=== PATIENT | female | born 1985 | race African-American/Black ===

== ENCOUNTER 2022-06-03 11:45 | Outpatient (RCR) | payer OTHER, SELFPAY ==
--- NOTE | 2022-04-24 16:49 | PTOPEVAL1 ---
Assessment and note entered by Zulema Hansen, PT Evaluation Information Assessment Status Evaluation Diagnosis muscle weakness generalized Subjective Information Pt reports blood clot Roberta LLE secondary to cancer treatment so is susceptible to blood clots Goal is to build strength in LLE. Reported Pain Level Pain Score 0: Self Report Assessment PT Clinical Summary Pt presents w/ c/o LLE weakness, blood clot, and decreased endurance related to cancer treatment and chemotherapy side effects. Prior level of function patient was able to run/walk for 45 minutes without a break. Evaluation shows pt is able to walk ad a brisk pace for 5 minutes 40 seconds prior to requiring a sitting break, 1330 ft with increasing postural weakness noted through activity. Demo's BLE weakness of glutes and reduced strength of postural musculature however appears grossly equal BLE. Pt will greatly benefit from physical therapy to improve endurance and strength in order to assist pt in being as functionally independent as able. Plan of Care Interventions Neuro Re-education,Patient/Caregiver Educati, Therapeutic Activities,Therapeutic Exercise PT Services Indicated Yes Treatment Frequency and 2x weekly x 6 weeks then reassessment for Duration progression vs POC adjustment These treatments will address the objective and functional deficits as defined above. The patient will be advanced safely and appropriately in order for the patient to progress towards his/her prior level of function. Additional exercises will be introduced and as well as a comprehensive home exercise program upon discharge, if needed, ?to ensure carryover of functional gains achieved in the clinic. This treatment plan has been reviewed and agreement upon by the patient.
--- NOTE | 2022-07-04 11:51 | PCPTNOTE ---
PHYSICAL THERAPY DISCHARGE 07-04-22 Attending Provider: Leighton Talbert MD Patient:Santo Enamorado Date of :1985 Santo has received 5 PT sessions, from April 24 to June 03. She then stopped attending; therefore she will be discharged at this time. She does have a compression thigh high garment for management of her lymphedema and has been issued a home exercise program. The goals were not assessed. Thank you for referring Ms. Enamorado to [facility].
== END 2022-07-04 14:15 | disposition home or self-care (01) ==
LOC: ANHPT 11:45
DX: R53.1 Weakness (principal); C53.9 Malignant neoplasm of cervix uteri, unspecified; I82.422 Acute embolism and thrombosis of left iliac vein
CPT/HCPCS: 97110; 97140; 97162; 97530

== ENCOUNTER 2023-06-10 02:00 | Emergency (ER) | payer OTHER, SELFPAY ==
[2023-06-10] VITALS (32 sets, daily range): BP systolic 90–146; BP diastolic 53–123; PULSE 90–136; RESP 11–32; TEMP 36.8; O2SAT 96–100
--- NOTE | ~2023-06-10 | CT_ITS ---
CT of the Abdomen and Pelvis: Indication: Abdominal pain, history of cervical cancer Technique: 2.5 mm axial scans were obtained through the abdomen and pelvis following intravenous adm inistration of 100 cc of Omnipaque 350. Dose reduction technique was used on this scan by utilizing a utomated exposure control and iterative reconstruction technique. The dose-length product (DLP) was 4 38.83 mGy-cm. Findings: Scans through the lung bases are unremarkable. The liver, spleen, pancreas, and adrenal glands are within normal limits. Gallbladder is prominently distended, but otherwise morphologically unremarkable on CT imaging. There is mild right hydrouretero nephrosis. Left kidney appears minimally atrophic, with left ureteral stent in place. No left hydrone phrosis. No evidence of aortic aneurysm. No lymphadenopathy. No definite bowel obstruction. There is prominent distention of the cecum which is filled with stool. Images through the pelvis were performed. No definite adnexal mass seen, though there is extensive in filtration of pelvic fat planes. Probable minimal free fluid in the pelvis. Impression: Extensive infiltration of pelvic fat planes with small amount of free fluid in the pelvis. Findings c ould reflect post therapy changes related to history of cervical cancer. No definite pelvic mass iden tified. Correlate with treatment history. Mild right hydroureteronephrosis. Left ureteral stent in place. Prominent distention of cecum which is filled with stool. No bowel obstruction evident. Distended gallbladder. Consider ultrasound, as indicated. Reviewed, dictated and finalized at [facility]. VERY CONSULTANT Impression: Extensive infiltration of pelvic fat planes with small amount of free fluid in the pelvis. Findings could reflect post therapy changes related to history of c ervical cancer. No definite pelvic mass identified. Correlate with treatment hi story. Mild right hydroureteronephrosis. Left ureteral stent in place. Prominent distention of cecum which is filled with stool. No bowel obstruction evident. Distended gallbladder. Consider ultrasound, as indicated.
--- NOTE | ~2023-06-10 | XR_ITS ---
Portable chest x-ray Comparison: 04/12/2016 Clinical History: Cough Findings: Right-sided central venous line/Mediport is in place. Lungs are clear, without focal conso lidation or pleural effusion. Cardiomediastinal silhouette is stable. Bones and soft tissues are unr emarkable. Impression: Clear lungs. Support line, as above. Reviewed, dictated and finalized at location [facility]. BUILDER Impression: Clear lungs. Support line, as above.
[2023-06-10] MEDS: SODIUM CHLORIDE 0.9% IV 1,000 ML 999 ML IV CONT (03:35)
[2023-06-10] MEDS: ONDANSETRON INJ 4 MG/2 ML VIAL IV PUSH (03:35)
[2023-06-10] MEDS: HYDROmorphone HCL INJ (*CRX) 1 MG/ML SYR IV PUSH ×3 (03:35→10:38)
[2023-06-10 03:43] LABS: Basophils Percent Auto 0.2 % (0.2-1.2); Hematocrit 26.9 % (37.0-47.0); Immature Granulocyte Absolute 0.14 K/mm3 (0.00-0.031); Immature Granulocyte Percent A 0.7 % (0-0.5); Lymphocytes Absolute Auto 1.42 K/mm3 (0.9-3.2); Lymphocytes Percent Auto 7.5 % (18.3-44.2); Mean Corpuscular HGB Conc 33.5 g/dl (32-36); Mean Corpuscular Hemoglobin 30.1 pg (26-34); Mean Platelet Volume 9.8 fl (7.4-10.4); Monocytes Percent Auto 5.2 % (2.6-8.5); Neutrophils Absolute Auto 16.3 K/mm3 (1.3-6.7); Neutrophils Percent Auto 86.4 % (45.5-73.1); Platelet Count Result 338 k/mm3 (150-375); Red Blood Count 2.99 M/mm3 (4.2-5.4); Red Cell Distribution Width 13.5 % (11.5-14.5); White Blood Count 18.9 K/mm3 (4.5-10.0)
[2023-06-10 03:55] LABS: Alanine Aminotransferase 14 U/L (6-35); Albumin Level 2.4 g/dL (3.5-5.1); Alkaline Phosphatase 86 U/L (38-126); Anion Gap 14 mmol/L (8-16); Aspartate Amino Transferase 21 U/L (14-36); Bilirubin,Total 0.6 mg/dL (0.2-1.3); Blood Urea Nitrogen 13 mg/dL (7-17); Calcium 10.2 mg/dL (8.4-10.2); Carbon Dioxide 22 mmol/L (22-30); Chloride 103 mmol/L (98-107); Estimated CRCL calculation 53 ml/min; Estimated Glomerular Filt Rate > 60; Glucose 105 mg/dL (65-110); Lipase 73 U/L (23-300); Potassium 4.1 mmol/L (3.4-5.0); Sodium 139 mmol/L (137-145)
[2023-06-10 04:04] LABS: INR 1.3; Prothrombin Time 16.6 Seconds (11.1-14.7)
[2023-06-10 04:06] LABS: Partial Thromboplastin Time 63.2 SECONDS (22.3-36.8)
--- NOTE | 2023-06-10 04:45 | ED.GENADULT ---
HPI - General Adult General Chief complaint: Vaginal Bleeding Stated complaint: vaginal bleeding Time Seen by Provider: 06/10/23 03:07 History of Present Illness HPI narrative: Patient is a 38-year-old female who presents emerged from with chief complaint of abdominal pain and vaginal bleeding. Patient has history of cervical cancer is followed at [facility] the patient reports she has had severe abdominal pain and now started having vaginal bleeding that was requiring approximately 1 tampon an hour. The patient reports that she is undergoing chemotherapy and was recently admitted at [place]. Related Data Allergies Allergy/AdvReac Type Severity Reaction Status Date / Time No Known Allergies Allergy Unverified 07/23/18 14:37 Review of Systems Review of Systems: A 10 system review of systems was completed on the patient and is negative except for what is stated in the HPI. Nursing and ancillary documentation was reviewed. Exam Narrative: GENERAL: Ill-appearing, well-nourished, and in moderate acute pain distress. HEAD: Normocephalic, atraumatic. EYES: PERRLA and EOMI. ENT: Nares clear, no rhinorrhea or epistaxis. Mucous membranes moist. NECK: Supple. CHEST: Clear to auscultation. No respiratory distress. HEART: Regular rate and rhythm. No murmur heard. Normal peripheral pulses. ABDOMEN: Soft, diffusely tender to palpation, nondistended, normal active bowel sounds. : There is a moderate amount of blood in the vaginal wall was able to be cleared with 2 OB swabs EXTREMITIES: Normal range of motion. No edema. SKIN: Warm, dry, no rash. NEURO: No focal deficits. Alert and oriented x3. PSYCH: Normal mood and affect. Course Vital Signs Vital signs: Vital Signs Temperature 36.8 C 06/10/23 02:04 Pulse Rate 90 06/10/23 02:04 Respiratory Rate 18 06/10/23 02:04 Blood Pressure 116/77 06/10/23 02:04 Pulse Oximetry 100 06/10/23 02:04 Oxygen Delivery Room Air 06/10/23 02:04 Temperature 36.8 C 06/10/23 02:04 Pulse Rate 99 06/10/23 07:05 Respiratory Rate 19 06/10/23 07:05 Blood Pressure 133/90 06/10/23 07:05 Pulse Oximetry 100 06/10/23 07:05 Oxygen Delivery Room Air 06/10/23 02:04 Medical Decision Making MDM Narrative Medical decision making narrative: Differential diagnosis includes urinary tract infection, pelvic infection, hemorrhage from cervical cancer, Laboratory studies were obtained showed a white count of 18.9 Urinalysis showed evidence of a UTI Patient was started on Rocephin in the emergency department patient's pain was ultimately controlled using fentanyl after receiving 2, 1 mg doses of Dilaudid Case was discussed with patient's doctor at [facility] the patient will be accepted at [facility] Vital Signs Vital Signs: Vital Signs Temperature 36.8 C 06/10/23 02:04 Pulse Rate 90 06/10/23 02:04 Respiratory Rate 18 06/10/23 02:04 Blood Pressure 116/77 06/10/23 02:04 Pulse Oximetry 100 06/10/23 02:04 Oxygen Delivery Room Air 06/10/23 02:04 Temperature 36.8 C 06/10/23 02:04 Pulse Rate 99 06/10/23 07:05 Respiratory Rate 19 06/10/23 07:05 Blood Pressure 133/90 06/10/23 07:05 Pulse Oximetry 100 06/10/23 07:05 Oxygen Delivery Room Air 06/10/23 02:04 Lab Data 06/10/23 03:38 06/10/23 03:38 Labs: Lab Results 06/10/23 06/10/23 Range/Units 03:38 05:09 WBC 18.9 H (4.5-10.0) K/mm3 RBC 2.99 L (4.2-5.4) M/mm3 Hgb 9.0 L (12.0-15.0) g/dL Hct 26.9 L (37.0-47.0) % MCV 90.0 (80-100) fl MCH 30.1 (26-34) pg MCHC 33.5 (32-36) g/dl RDW 13.5 (11.5-14.5) % Plt Count 338 (150-375) k/mm3 MPV 9.8 (7.4-10.4) fl Immature Gran % (Auto) 0.7 H (0-0.5) % Neut % (Auto) 86.4 H (45.5-73.1) % Lymph % (Auto) 7.5 L (18.3-44.2) % [place] % (Auto) 5.2 (2.6-8.5) % Eos % (Auto) 0.0 (0-4.4) % Baso % (Auto) 0.2 (0.2-1.2) % Lymph # (Auto) 1.42 (0.9-3.
[2023-06-10] MEDS: fentaNYL CITRATE INJ (*CRX) 100 MCG/2 ML VIAL 50 MCG IV PUSH ×3 (04:56→07:53)
[2023-06-10 05:38] LABS: Appearance Urine Cloudy (Clear); Bacteria Urine None Seen /hpf; Bilirubin Urine Negative (Negative); Blood Urine 3+ (Negative); Color Urine Yellow (Yellow); Glucose Urine UA Negative (Negative); Ketones Urine 1+ mg/dL (Negative); Leukocyte Esterase Ur 1+ LEU/UL (Negative); Nitrate Urine Negative (Negative); Non Pathogenic Casts 0-2; Protein Urine Negative (Negative); RBC Urine >100 /hpf (0-2); Squamous Epithelial Cell Urine Occasional /hpf (Few); Urobilinogen Urine 0.2 mg/dL (<2.0); WBC Clumps Urine Present /HPF; WBC Urine 21-50 /hpf; pH Urine 7.5 (5.0-9.0)
[2023-06-10 05:39] LABS: Specific Grav Ur 1.044 (1.001-1.035)
[2023-06-10 05:45] LABS: Add Urine Microscopic? YES
[2023-06-10] MEDS: CENTRAL LINE FLUSH 10 ML IV PUSH (06:04)
--- NOTE | 2023-06-10 07:12 | PC.NURSE ---
[facility] transfer center called for triage. They state pt is accepted and waiting on a bed
--- NOTE | 2023-06-10 10:05 | PC.NURSE ---
Autumn from [facility] call center called for updated set of vitals, Bed assignment [id number], number to call report [phone]
--- NOTE | 2023-06-10 10:13 | PC.NURSE ---
Report given to Amber MANN at [facility]
== END 2023-06-10 11:11 | disposition short-term general hospital (02) ==
PROVIDERS: Emergency Provider Emergency Medicine
DX: C53.9 Malignant neoplasm of cervix uteri, unspecified (principal); N93.9 Abnormal uterine and vaginal bleeding, unspecified; N39.0 Urinary tract infection, site not specified; D72.829 Elevated white blood cell count, unspecified
CPT/HCPCS: 36415; 71045; 74177; 80053; 81001; 83690; 85025; 85610; 85730; 86850; 86900; 86901; 87086; 96361; 96365; 96375; 96376; 99285; J0696; J1170; J2405; J3010; J7030; Q9967

== ENCOUNTER 2023-11-13 22:20 | Emergency (ER) | payer OTHER, SELFPAY ==
--- NOTE | ~2023-11-13 | CT_ITS ---
EXAMINATION: CT abdomen pelvis w con DATE: 11/14/2023 00:06 INDICATION: Abdominal pain, cervical cancer and vaginal bleeding TECHNIQUE: Computed tomography (CT) of the abdomen and pelvis was performed with 100 mL Omnipaque-350 intravenous contrast. Automated exposure control and iterative reconstruction technique were employe d. The dose-length product was 305.49 mGy-cm. COMPARISON: 06/10/2023 FINDINGS: Lung bases are clear. Heart size is normal. No pericardial or pleural effusion. Tip of a central veno us catheter extends from the superior vena cava into the high right atrium. Liver, gallbladder, splee n, pancreas and bilateral adrenal glands are normal. There are bilateral percutaneous nephrostomy tub es with loops formed in the bilateral renal pelvises minimal hydronephrosis. Right kidney is otherwis e normal. There is asymmetric mild to moderate left renal atrophy. Left lower quadrant diverting loop colostomy utilizing the proximal sigmoid colon. There appears be a suture line at the sigmoid colon distal to the diverting loop. There appears be an additional suture line deeper and more posteriorly in the pelvis potentially at the proximal end of a Mata's pouch. The margins of the rectum, cervix and base of the bladder are difficult to distinguish with heterogeneously enhancing tissue and edema replacing the normal fat in the deep pelvis. This appears to exert some mass effect upon the posteri or wall of the bladder and is concerning for progression of reported known cervical cancer. There are scattered foci of gas within this region and it is unclear whether this remains within a viscus stru cture, an abscess or free within the soft tissues. No other more remote free intraperitoneal gas. The re is also a small amount of gas within the bladder. Bones are unremarkable. IMPRESSION: 1. Increasing soft tissue density and soft tissue edema in the deep pelvis which obscures the delinea tion between the rectum if present and the region of the cervix and the base of the bladder. Interpre tation is complicated by the interval postoperative changes along the sigmoid colon with left lower q uadrant diverting loop sigmoid colostomy. It is unclear whether there remains a Mata's pouch. The increasing soft tissue density and edema be due to progression of reported known cervical cancer or i nflammatory pseudomass related to prior surgery and potentially complicated by either malignant invas ion or suture line breakdown. There are scattered foci of gas within this region could remain intralu hemal however elevate suspicion for associated perforated viscus. 2. Minimal bilateral hydronephrosis with bilateral percutaneous nephrostomy tubes in expected positio ns. Reviewed, dictated and finalized at location [facility]. IMPRESSION: 1. Increasing soft tissue density and soft tissue edema in the deep pelvis whic h obscures the delineation between the rectum if present and the region of the cervix and the base of the bladder. Interpretation is complicated by the interv al postoperative changes along the sigmoid colon with left lower quadrant diver ting loop sigmoid colostomy. It is unclear whether there remains a Mata's po uch. The increasing soft tissue density and edema be due to progression of repo rted known cervical cancer or inflammatory pseudomass related to prior surgery and potentially complicated by either malignant invasion or suture line breakdo wn. There are scattered foci of gas within this region could remain intralumina l however elevate suspicion for associated perforated viscus. 2. Minimal bilateral hydronephrosis with bilateral percutaneous nephrostomy tub es in expected positions.
[2023-11-13 22:21] VITALS: BP 101/70; PULSE 122; RESP 16; TEMP 36.9; O2SAT 100
[2023-11-13 22:30] VITALS: BP 95/66; PULSE 118; RESP 20; TEMP 36.9; O2SAT 100
[2023-11-13] MEDS: SODIUM CHLORIDE 0.9% IV 1,000 ML 999 ML IV CONT (23:05)
[2023-11-13] MEDS: ONDANSETRON INJ 4 MG/2 ML VIAL IV PUSH (23:06)
[2023-11-13 23:14] LABS: Basophils Percent Auto 0.2 % (0.2-1.2); Eosinophils Percent Auto 0.2 % (0-4.4); Hematocrit 22.2 % (37.0-47.0); Immature Granulocyte Absolute 0.08 K/mm3 (0.00-0.031); Immature Granulocyte Percent A 0.8 % (0-0.5); Lymphocytes Absolute Auto 1.38 K/mm3 (0.9-3.2); Lymphocytes Percent Auto 13.1 % (18.3-44.2); Mean Corpuscular Hemoglobin 26.6 pg (26-34); Mean Corpuscular Volume 83.1 fl (80-100); Mean Platelet Volume 9.8 fl (7.4-10.4); Monocytes Absolute Auto 0.6 K/mm3 (0.1-0.6); Monocytes Percent Auto 6.1 % (2.6-8.5); Neutrophils Absolute Auto 8.4 K/mm3 (1.3-6.7); Neutrophils Percent Auto 79.6 % (45.5-73.1); Platelet Count Result 196 k/mm3 (150-375); Red Blood Count 2.67 M/mm3 (4.2-5.4); White Blood Count 10.5 K/mm3 (4.5-10.0)
[2023-11-13 23:16] LABS: Hemoglobin 7.1 g/dL (12.0-15.0)
[2023-11-13 23:26] LABS: INR 1.1; Prothrombin Time 15.2 Seconds (11.1-14.7)
[2023-11-13 23:27] LABS: Partial Thromboplastin Time 28.1 Seconds (22.3-36.8)
[2023-11-13 23:35] LABS: Alanine Aminotransferase 13 U/L (6-35); Albumin Level 3.3 g/dL (3.5-5.1); Alkaline Phosphatase 63 U/L (38-126); Anion Gap 8 mmol/L (4-12); Aspartate Amino Transferase 23 U/L (14-36); Bilirubin,Total 0.3 mg/dL (0.2-1.3); Blood Urea Nitrogen 17 mg/dL (7-17); Calcium 8.6 mg/dL (8.4-10.2); Carbon Dioxide 25 mmol/L (22-30); Chloride 104 mmol/L (98-107); Estimated CRCL calculation 62 ml/min; Estimated Glomerular Filt Rate > 60; Glucose 139 mg/dL (65-110); Lactic Acid Reflex 2.5 mmol/L (0.7-2.0); Magnesium 1.6 mg/dL (1.6-2.3); Potassium 3.3 mmol/L (3.4-5.0); Sodium 137 mmol/L (137-145)
[2023-11-14] VITALS (71 sets, daily range): BP systolic 77–107; BP diastolic 37–66; PULSE 81–121; RESP 0–31; TEMP 37.1–37.5; O2SAT 97–100
[2023-11-14 00:07] LABS: Appearance Urine Cloudy (Clear); Bacteria Urine 4+ /hpf; Bilirubin Urine Negative (Negative); Blood Urine 2+ (Negative); Color Urine Yellow (Yellow); Glucose Urine UA Negative (Negative); Hyaline Casts Urine Present /lpf; Ketones Urine Negative (Negative); Leukocyte Esterase Ur 3+ LEU/UL (Negative); Need Manual Microscopic Reviewed; Nitrate Urine Negative (Negative); Protein Urine 2+ mg/dL (Negative); RBC Urine 21-50 /hpf (0-2); Specific Grav Ur 1.019 (1.001-1.035); Squamous Epithelial Cell Urine None Seen /hpf (Few); WBC Urine >100 /hpf (0-3)
[2023-11-14 00:08] LABS: Add Urine Microscopic? YES
--- NOTE | 2023-11-14 00:31 | ED.GENADULT ---
HPI - General Adult General Chief complaint: Vaginal Bleeding Stated complaint: vaginal bleeding Time Seen by Provider: 11/13/23 22:34 History of Present Illness HPI narrative: patient is a 38-year-old female who presents emergency department with chief complaint of vaginal bleeding. Patient reports that she has history of cervical cancer has had a colostomy and is followed at [facility] patient reports that she had a blood transfusion yesterday and reports that today she started having vaginal bleeding and has gone through 2 pads earlier this evening. Patient states she feels lightheaded and reports that she feels extremely weak. Patient reports she has discomfort throughout her abdomen Related Data Allergies Allergy/AdvReac Type Severity Reaction Status Date / Time tamsulosin Allergy Unknown Verified 11/13/23 22:29 Review of Systems Review of Systems: A 10 system review of systems was completed on the patient and is negative except for what is stated in the HPI. Nursing and ancillary documentation was reviewed. Exam Narrative: GENERAL: Well-appearing, well-nourished, and in no acute distress. HEAD: Normocephalic, atraumatic. EYES: PERRLA and EOMI. ENT: Nares clear, no rhinorrhea or epistaxis. Mucous membranes moist. NECK: Supple. CHEST: Clear to auscultation. No respiratory distress. HEART: Regular rate and rhythm. No murmur heard. Normal peripheral pulses. ABDOMEN: Soft, nontender, nondistended, normal active bowel sounds. EXTREMITIES: Normal range of motion. No edema. SKIN: Warm, dry, no rash. NEURO: No focal deficits. Alert and oriented x3. PSYCH: Normal mood and affect. Course Vital Signs Vital signs: Vital Signs Temperature 36.9 C 11/13/23 22:21 Pulse Rate 122 H 11/13/23 22:21 Respiratory Rate 16 11/13/23 22:21 Blood Pressure 101/70 11/13/23 22:21 Pulse Oximetry 100 11/13/23 22:21 Oxygen Delivery Room Air 11/13/23 22:21 Temperature 37.3 C 11/14/23 06:13 Pulse Rate 108 H 11/14/23 06:13 Respiratory Rate 14 11/14/23 06:13 Blood Pressure 100/65 11/14/23 06:13 Pulse Oximetry 100 11/14/23 06:13 Oxygen Delivery Room Air 11/13/23 22:21 Medical Decision Making MDM Narrative Medical decision making narrative: differential diagnosis includes bleeding from tissue necrosis, anemia, laboratory studies were obtained on the patient showed hemoglobin of 7.1. The patient was having active bleeding at this time and pressures were on the lower end of the spectrum the patient was given 2 units packed red blood cells. CT scan of the abdomen pelvis showed increase in size of the mass from previous studies case was discussed with Dr. Bearden of the [facility] who accepted the patient for transfer to [place] Vital Signs Vital Signs: Vital Signs Temperature 36.9 C 11/13/23 22:21 Pulse Rate 122 H 11/13/23 22:21 Respiratory Rate 16 11/13/23 22:21 Blood Pressure 101/70 11/13/23 22:21 Pulse Oximetry 100 11/13/23 22:21 Oxygen Delivery Room Air 11/13/23 22:21 Temperature 37.3 C 11/14/23 06:13 Pulse Rate 108 H 11/14/23 06:13 Respiratory Rate 14 11/14/23 06:13 Blood Pressure 100/65 11/14/23 06:13 Pulse Oximetry 100 11/14/23 06:13 Oxygen Delivery Room Air 11/13/23 22:21 Lab Data 11/13/23 23:09 11/13/23 23:09 Labs: Lab Results 11/13/23 11/13/23 11/14/23 Range/Units 23:09 23:48 02:53 WBC 10.5 H (4.5-10.0) K/mm3 RBC 2.67 L (4.2-5.4) M/mm3 Hgb 7.1 L (12.0-15.0) g/dL Hct 22.2 L (37.0-47.0) % MCV 83.1 (80-100) fl MCH 26.6 (26-34) pg MCHC 32.0 (32-36) g/dl RDW 17.0 H (11.5-14.5) % Plt Count 196 (150-375) k/mm3 MPV 9.8 (7.4-10.4) fl Immature Gran % (Auto) 0.8 H (0-0.5) % Neut % (Auto) 79.6 H (45.5-73.1) % Lymph % (Auto) 13.1 L (18.3-44.2) % [place] % (Auto) 6.1 (2.6-8.5) % Eos % (Auto) 0.2 (0-4.4)
[2023-11-14] MEDS: SODIUM CHLORIDE 0.9% IV 1,000 ML 999 ML IV CONT (01:16)
[2023-11-14 02:11] LABS: Reflex Lactic Acid Yes or No Add Lactic
[2023-11-14 03:07] LABS: Lactic Acid 0.8 mmol/L (0.7-2.0)
[2023-11-14] MEDS: TUBING, BLOOD PLUM PUMP TUBING 1 EACH XX (04:58)
[2023-11-14] MEDS: SODIUM CHLORIDE 0.9% IV 250 ML 30 ML IV CONT (04:59)
[2023-11-14] MEDS: SODIUM CHLORIDE 0.9% IV 500 ML 999 ML IV CONT (07:15)
--- NOTE | 2023-11-14 08:46 | PC.NURSE ---
Pt assisted up to BSC. Small amount red vaginal bleeding note. Pt tolerated well. Denies dizziness upon standing
--- NOTE | 2023-11-14 09:21 | PC.NURSE ---
Pt up to BSC approx 250ml of blood noted. Urostomy tubes draining dark yellow urine, colostomy bag intact with soft stool.
--- NOTE | 2023-11-14 09:46 | PC.NURSE ---
[facility] here pt transfer to [facility] with RBC infusing.
== END 2023-11-14 09:47 | disposition short-term general hospital (02) ==
PROVIDERS: Emergency Provider Emergency Medicine
DX: C53.9 Malignant neoplasm of cervix uteri, unspecified (principal); D64.9 Anemia, unspecified; N93.9 Abnormal uterine and vaginal bleeding, unspecified
CPT/HCPCS: 36415; 36430; 74177; 80053; 81001; 81025; 83605; 83735; 85025; 85610; 85730; 86850; 86900; 86901; 86923; 87077; 87086; 87088; 87186; 96361; 96374; 99285; J2405; J7030; J7040; J7050; P9016; Q9967